=== PATIENT | male | born 1975 | race African-American/Black ===

== ENCOUNTER 2016-12-09 09:37 | Outpatient (CLI) ==
[2013-04-24 00:10] VITALS: TEMP 97.8
[2016-04-19 00:05] VITALS: BMI 28.2
[2016-12-09 12:39] LABS: BASOPHILS % (AUTO) 0.5 % (0.0-3.0); EOSINOPHILS # (AUTO) 0.2 K/ul (0.0-0.7); EOSINOPHILS % (AUTO) 4.7 % (0.0-7.0); HEMATOCRIT 46.3 % (42.0-52.0); HEMOGLOBIN 15.6 g/dl (14.0-18.0); IMMATURE GRANULOCYTE % (AUTO) 0.2 % (0.0-5.0); LYMPHOCYTES # (AUTO) 1.6 K/uL (0.60-3.4); MEAN CORPUSCULAR HEMOGLOBIN 29.3 pg (27.0-31.0); MEAN CORPUSCULAR HGB CONC 33.7 (31.8-35.4); MEAN CORPUSCULAR VOLUME 86.9 fl (80.0-94.0); MONOCYTES # (AUTO) 0.6 K/uL (0.4-2.0); MONOCYTES % (AUTO) 13.3 (0-10); NEUTROPHILS # (AUTO) 2.1 K/ul (2.0-6.9); NEUTROPHILS % (AUTO) 46.3; PLATELET COUNT 348 10^3/uL (140-440); RED BLOOD COUNT 5.33 10^6/ul (4.70-6.10); WHITE BLOOD COUNT 4.43 K/ul (4.2-10.2)
[2016-12-09 13:42] LABS: ALBUMIN 3.8 g/dL (3.4-5.0); ALBUMIN/GLOBULIN RATIO 1.09; ANION GAP 15.2; BILIRUBIN,TOTAL 0.22 mg/dL (0.00-1.20); BUN/CREATININE RATIO 6.61; CALCIUM 9.2 mg/dL (8.2-10.2); CHOL/HDL RATIO 6.4 (4.5-6.4); CREATININE 1.36 mg/dL (0.60-1.10); POTASSIUM 4.2 mmol/L (3.5-5.1); TOTAL PROTEIN 7.3 g/dL (6.4-8.2)
== END 2016-12-09 09:38 | disposition home or self-care (01) ==
LOC: LAB 09:37
PROVIDERS: ATTEND Nurse Practitioner Family
DX: Z79.899 Other long term (current) drug therapy (principal)
CPT/HCPCS: 36415; 80053; 80061; 85025

== ENCOUNTER 2016-12-14 22:16 | Emergency (ER) ==
[2016-12-14 22:25] VITALS: BP 137/87; TEMP 97.3; BMI 34.2
[2016-12-14] MEDS ORDERED: ZOFRAN 4 MG/2 ML IM STA (22:32)
[2016-12-14] MEDS ORDERED: MORPHINE 4 MG/ML SYRINGE IM STA (22:32)
[2016-12-14 22:42] LABS: BASOPHILS % (AUTO) 0.4 % (0.0-3.0); EOSINOPHILS # (AUTO) 0.1 K/ul (0.0-0.7); EOSINOPHILS % (AUTO) 1.8 % (0.0-7.0); HEMOGLOBIN 15.9 g/dl (14.0-18.0); IMMATURE GRANULOCYTE % (AUTO) 0.1 % (0.0-5.0); LYMPHOCYTES # (AUTO) 3.3 K/uL (0.60-3.4); LYMPHOCYTES % (AUTO) 42.9 (10.0-50.0); MEAN CORPUSCULAR HEMOGLOBIN 29.6 pg (27.0-31.0); MEAN CORPUSCULAR HGB CONC 35.3 (31.8-35.4); MEAN CORPUSCULAR VOLUME 83.6 fl (80.0-94.0); MONOCYTES # (AUTO) 0.6 K/uL (0.4-2.0); MONOCYTES % (AUTO) 7.7 (0-10); NEUTROPHILS # (AUTO) 3.6 K/ul (2.0-6.9); NEUTROPHILS % (AUTO) 47.1; PLATELET COUNT 353 10^3/uL (140-440); RED BLOOD COUNT 5.38 10^6/ul (4.70-6.10); WHITE BLOOD COUNT 7.62 K/ul (4.2-10.2)
[2016-12-14 23:13] LABS: ADD URINE MICROSCOPIC NO; BILIRUBIN,URINE Negative (NEGATIVE); KETONES,URINE Negative (NEGATIVE); LEUKOCYTE ESTERASE ,URINE Negative (NEGATIVE); NITRITE,URINE Negative (NEGATIVE); PH,URINE 5.5 (5-9); PROTEIN,URINE Negative (NEGATIVE); URINE, BLOOD Negative (NEGATIVE)
[2016-12-14 23:16] LABS: ALANINE AMINOTRANSFERASE 32 U/L (12-78); ALBUMIN 4.3 g/dL (3.4-5.0); ALBUMIN/GLOBULIN RATIO 1.26; ALKALINE PHOSPHATASE 60 U/L (50-136); AMYLASE 50 U/L (25-115); ANION GAP 16.6; ASPARTATE AMINO TRANSFERASE 20 U/L (15-37); BLOOD UREA NITROGEN 11 mg/dL (7-18); BUN/CREATININE RATIO 8.39; CALCIUM 9.5 mg/dL (8.2-10.2); CARBON DIOXIDE 21 mmol/L (21-32); CHLORIDE 103 mmol/L (98-107); CREATINE KINASE 241 U/L; CREATININE 1.31 mg/dL (0.60-1.10); GLUCOSE 99 mg/dL (70-100); LIPASE 41 U/L (8-78); POTASSIUM 3.6 mmol/L (3.5-5.1); SODIUM 137 mmol/L (136-145); TOTAL PROTEIN 7.7 g/dL (6.4-8.2)
[2016-12-14 23:17] LABS: CREATINE KINASE MB 1.7 ng/ml (0.0-3.6)
--- NOTE | 2016-12-14 23:17 | CT ---
EXAM: CT abdomen pelvis without intravenous contrast 12/14/2016. Sagittal and coronal reformatted images obtained HISTORY: Abdominal pain. Question hernia COMPARISON: 04/19/2016 FINDINGS: The liver and gallbladder show no acute abnormality. The adrenal glands and kidneys show no acute abnormality. No urinary obstruction. The spleen and p ancreas show no acute abnormality. There is no bowel obstruction. Normal appendix. Unremarkable urinary bladder. No free air or free fluid. No acute osseous abnormality. IMPRESSION: 1. No urinary or bowel obstruction and normal appendix. 2. No acute inflammatory process identified within the abdomen or pelvis within the limitation of a noncontrast enhanced examination. 3. No hernia identified at any site.
--- NOTE | 2016-12-14 23:53 | ED.PDOC ---
General ED Provider: Dr. MAYCOL MARIO-ER Chief Complaint: Abdominal Pain Stated Complaint: it hurts in my belly and my testicles Time Seen by Physician: 22:20 Mode of Arrival: Walk-In Information Source: Patient Exam Limitations: No limitations [facility] Nursing and Triage Documentation Reviewed and Agree: Yes GI Complaint Exam - Abdominal Pain Complaint/Exam Onset: Gradual Duration: several days Symptoms Are: Still present Timing: Intermittent Initial Severity: Mild Current Severity: Mild Location of Pain: Discrete Radiates To: Reports: Inguinal Character: Reports: Dull Aggravating: Reports: None Alleviating: Reports: None Associated Signs and Symptoms: Denies: Diaphoresis, Fever, Cough, Chest pain, Dizziness, Back pain, Constipation, Blood in stool, Dysuria, Urinary frequency, Decreased urine output, Decreased appetite, Discharge, Nausea, Vomiting, Diarrhea, Decreased activity Testicular Torsion Risk Factors: Reports: None Abdominal Findings: Present: None Genitalia Exam: Present: Testes tender. Absent: Mass, Scrotal swelling Differential Diagnoses: Other Review of Systems - Review Of Systems Constitutional: Reports: No symptoms Eyes: Reports: No symptoms Ears, Nose, Mouth, Throat: Reports: No symptoms Respiratory: Reports: No symptoms Cardiac: Reports: No symptoms GI: Reports: No symptoms : Reports: Pain Musculoskeletal: Reports: No symptoms Skin: Reports: No symptoms Neurological: Reports: No symptoms Endocrine: Reports: No symptoms Hematologic/Lymphatic: Reports: No symptoms All Other Systems: Reviewed and Negative Past Medical History - Past Medical History Previously Healthy: Yes Endocrine: Reports: None Cardiovascular: Reports: None Respiratory: Reports: None Hematological: Reports: None Gastrointestinal: Reports: None Genitourinary: Reports: None Neuro/Psych: Reports: Schizophrenia (VOICES IN HEAD NOTE SENT TO [facility] IN 2013 ) Musculoskeletal: Reports: None Cancer: Reports: None - Surgical History General Surgical History: Reports: None, Unknown - Family History Family History: Reports: Unknown - Social History Smoking Status: Current some day smoker, Light tobacco smoker Hx Substance Use: No Alcohol Screening: None - Immunizations Tetanus Shot up to Date: Yes Physical Exam - Physical Exam Appearance: Well-appearing, No pain distress, Well-nourished Pain Distress: Mild Eyes: JUNE, EOMI, Conjunctiva clear ENT: Ears normal, Nose normal, Oropharynx normal Neck: Supple Respiratory: Airway patent Cardiovascular: RRR, Pulses normal, No rub, No murmur GI/: Tender (posterior scrotum) Musculoskeletal: Normal strength, ROM intact, No edema, No calf tenderness Skin: Warm, Dry, Normal color Neurological: Sensation intact Psychiatric: Affect appropriate, Mood appropriate Re-Evaluation - Re-Evaluation Time of Re-Evaluation: 23:53 Status: Improved Vital Signs Stable: Yes Pain Level: 1 Appearance: NAD Lungs: Clear Skin: Warm and Dry Neuro: Alert and Oriented X3 CV: RRR Critical Care Note - Critical Care Note Total Time (mins): 0 Course - Course Hematology/Chemistry: 12/14/16 22:39 12/14/16 22:39 Orders, Labs, Meds: Lab Review 12/14/16 12/14/16 22:36 22:39 WBC 7.62 RBC 5.38 Hgb 15.9 Hct 45.0 MCV 83.6 MCH 29.6 MCHC 35.3 RDW Coeff of Sathya 13.3 Plt Count 353 Immature Gran % (Auto) 0.1 Neut % (Auto) 47.1 Lymph % (Auto) 42.9 [place] % (Auto) 7.7 Eos % (Auto) 1.8 Baso % (Auto) 0.4 Immature Gran # (Auto) 0.0 Neut # 3.6 Lymph # 3.3 [place] # 0.6 Eos # 0.1 Baso # 0.0 Sodium 137 Potassium 3.6 Chloride 103 Carbon Dioxide 21 Anion Gap 16.6 BUN 11 Creatinine 1.31 H Estimated GFR (MDRD) 73.00 BUN/Creatinine Ratio 8.39 Glucose 99 Calcium 9.5 Total Bilirubin 0.60 AST 20 ALT 32 Alkaline Phosphatase 60 Total Creatine Kinase 241 CK-MB (CK-2) 1.7 CK-MB (CK-2) % 0.93712 Troponin I < 0.0100 Total Protein 7.7 Albumin 4.3 Globulin 3.4 Albumin/Globulin Ratio 1.26 Amylase 50 Lipase 41 Urine Color Yellow Urine Clarity Clear Urine pH 5.5 Ur Specific [place] 1.020 Urine Protein Negative Urine Glucose (UA) Negative Urine Ketones Negative Urine Blood Negative Urine Nitrite Negative Urine Bilirubin Negative Urine Urobilinogen 0.2 Ur Leukocyte Esterase Negative Orders Category Date Time Status EKG-(ED ONLY) Stat CARDIO 12/14/16 22:32 Completed AMYLASE Stat LAB 12/14/16 22:39 Completed CBC W/ AUTO DIFF Stat LAB 12/14/16 22:39 Completed COMPREHENSIVE METABOLIC PANEL Stat LAB 12/14/16 22:39 Completed CREATINE KINASE Stat LAB 12/14/16 22:39 Completed LIPASE Stat LAB 12/14/16 22:39 Completed TROPONIN I Stat LAB 12/14/16 22:39 Completed URINALYSIS C & S IF INDICATED Stat LAB 12/14/16 22:36 Completed Morphine Sulfate [Morphine 4 mg/ml Syringe] MEDS 12/14/16 22:32 Discontinued 4 mg IM ONCE STA Ondansetron HCl/Pf [Zofran 4 mg/2 ml] MEDS 12/14/16 22:32 Discontinued 4 mg IM ONCE STA CT ABDOMEN/PELVIS WO CONTRAST Stat RADS 12/14/16 22:32 Completed Medications Discontinued Medications Generic Name Dose Route Start Last Admin Trade Name Freq PRN Reason Stop Dose Admin Morphine Sulfate 4 mg 12/14/16 22:32 12/14/16 23:00 Morphine 4 Mg/Ml Syringe IM 12/14/16 22:33 4 mg ONCE STA Administration Ondansetron HCl 4 mg 12/14/16 22:32 12/14/16 23:01 Zofran 4 Mg/2 Ml IM 12/14/16 22:33 4 mg ONCE STA Administration Vital Signs: Temp Pulse Resp BP Pulse Ox 12/14/16 22:17 97.3 F L 97 H 18 137/87 96 Departure - Departure Time of Disposition: 23:53 Disposition: HOME SELF-CARE Discharge Problem: Epididymitis Instructions: Epididymitis (ED) Condition: Good Pt referred to PMD for follow-up: Yes Additional Instructions: cipro 500mg bid x 10 days--norco 5mg q 6hrs prn pain#10--return tomorrow for u/ s scrotum--f/u with pcp Allergies/Adverse Reactions: Allergies No Known Drug Allergies Adverse Reaction (Verified 12/14/16 22:25) Home Medications: Ambulatory Orders Ranitidine HCl 150 mg PO BID 02/08/14 Fluoxetine HCl [Prozac] 20 mg PO DAILY #30 09/04/16 Lamotrigine [Lamictal] 150 mg PO DAILY #30 09/04/16 Mirtazapine [Remeron] 30 mg PO BEDTIME #30 09/04/16 Olanzapine [Zyprexa] 15 mg PO BEDTIME #90 09/04/16 Vistaril 25 mg PO QID #120 09/04/16 Disposition Discussed With: Patient, Family
== END 2016-12-14 23:57 | disposition home or self-care (01) ==
LOC: ED 22:16
DX: N45.1 Epididymitis (principal); F17.210 Nicotine dependence, cigarettes, uncomplicated
CPT/HCPCS: 36415; 80053; 81001; 82150; 82550; 82553; 83690; 84484; 85025; 93005; 93010; 96372; 99283

== ENCOUNTER 2016-12-15 14:11 | Outpatient (CLI) ==
[2013-04-24 00:10] VITALS: TEMP 97.8
[2016-12-14 22:25] VITALS: BMI 34.2
--- NOTE | 2016-12-15 15:08 | US ---
EXAM: Ultrasound scrotum and contents. HISTORY: Scrotal pain for 1 week. COMPARISON: None available. TECHNIQUE: Walters-scale and color Doppler images. FINDINGS: The right testicle measures 3.5 x 2 x 2.9 cm. There is homogeneous echogenicity with color flow. Ri ght epididymis is unremarkable. There is a small amount of right scrotal fluid. The left testicle measures 4.6 x 1.8 x 2.8 cm. There is homogeneous echogenicity with color flow. Left epididymis is unremarkable. There is a small amount of left scrotal fluid. IMPRESSION: 1. No sonographic abnormality of the testes. 2. Small bilateral hydroceles.
== END 2016-12-15 14:12 | disposition home or self-care (01) ==
LOC: RAD 14:11
PROVIDERS: ATTEND Family Medicine
DX: N50.82 Scrotal pain (principal)

== ENCOUNTER 2017-05-13 10:04 | Outpatient (CLI) ==
[2013-04-24 00:10] VITALS: TEMP 97.8
[2017-05-13 10:22] LABS: BASOPHILS % (AUTO) 0.5 % (0.0-3.0); EOSINOPHILS # (AUTO) 0.3 K/ul (0.0-0.7); EOSINOPHILS % (AUTO) 4.4 % (0.0-7.0); HEMATOCRIT 47.1 % (42.0-52.0); HEMOGLOBIN 15.9 g/dl (14.0-18.0); IMMATURE GRANULOCYTE % (AUTO) 0.3 % (0.0-5.0); LYMPHOCYTES # (AUTO) 2.1 K/uL (0.60-3.4); LYMPHOCYTES % (AUTO) 32.4 (10.0-50.0); MEAN CORPUSCULAR HEMOGLOBIN 29.6 pg (27.0-31.0); MEAN CORPUSCULAR HGB CONC 33.8 (31.8-35.4); MEAN CORPUSCULAR VOLUME 87.5 fl (80.0-94.0); MONOCYTES # (AUTO) 0.5 K/uL (0.4-2.0); MONOCYTES % (AUTO) 8.3 (0-10); NEUTROPHILS # (AUTO) 3.5 K/ul (2.0-6.9); NEUTROPHILS % (AUTO) 54.1; PLATELET COUNT 299 10^3/uL (140-440); RED BLOOD COUNT 5.38 10^6/ul (4.70-6.10); WHITE BLOOD COUNT 6.38 K/ul (4.2-10.2)
[2017-05-13 10:41] LABS: ALBUMIN 3.7 g/dL (3.4-5.0); ALBUMIN/GLOBULIN RATIO 1.19; ANION GAP 10.2; BILIRUBIN,TOTAL 0.21 mg/dL (0.00-1.20); BUN/CREATININE RATIO 14.28; CALCIUM 9.1 mg/dL (8.2-10.2); CHOL/HDL RATIO 4.2 (4.5-6.4); CREATININE 1.12 mg/dL (0.60-1.10); POTASSIUM 4.2 mmol/L (3.5-5.1); TOTAL PROTEIN 6.8 g/dL (6.4-8.2)
== END 2017-05-13 10:05 | disposition home or self-care (01) ==
LOC: LAB 10:04
PROVIDERS: ATTEND Nurse Practitioner Family
DX: E78.5 Hyperlipidemia, unspecified (principal); A60.02 Herpesviral infection of other male genital organs
CPT/HCPCS: 36415; 80053; 80061; 85025

== ENCOUNTER 2017-09-06 15:01 | Emergency (ER) ==
[2017-09-06 15:06] VITALS: BP 121/89; TEMP 100.7
[2017-09-06 16:06] LABS: ADD URINE MICROSCOPIC NO; BILIRUBIN,URINE Negative (NEGATIVE); KETONES,URINE Negative (NEGATIVE); LEUKOCYTE ESTERASE ,URINE Negative (NEGATIVE); NITRITE,URINE Negative (NEGATIVE); PH,URINE 5.5 (5-9); PROTEIN,URINE Negative (NEGATIVE); URINE, BLOOD Negative (NEGATIVE)
[2017-09-06] MEDS ORDERED: LIDOCAINE HCL 1% SDV SUBCUT STA (16:23)
[2017-09-06] MEDS ORDERED: ROCEPHIN IM STA (16:23)
--- NOTE | 2017-09-06 16:27 | ED.PDOC ---
General ED Provider: Dr. MAYCOL MARIO-ER Chief Complaint: Penile Problem Stated Complaint: it coyle when i pee Time Seen by Physician: 15:05 Mode of Arrival: Walk-In Information Source: Patient Exam Limitations: No limitations [facility] and Triage Documentation Reviewed and Agree: Yes Complaint Exam - Complaint/Exam Patient Complains of: Reports: Dysuria Onset/Duration: 24 hrs Symptoms Are: Still present Timing: Intermittent Initial Severity: Mild Current Severity: None Location of Pain: Reports: Penis Character: Reports: Burning Aggravating: Reports: None Alleviating: Reports: None Associated Signs and Symptoms: Reports: Dysuria. Denies: Diaphoresis, Back pain , Fever, Hematuria, Constipation, Blood in stool, Appetite change, Vomiting, Penile swelling, Penile discharge, Decreased urine output, Increased urine frequency, Increased thirst, Decreased activity, Lethargy, Scrotal pain, Scrotal swelling, Abdominal Pain Testicular Torsion Risk Factors: Reports: None Surgical Obstruction Risk Factors: Reports: None Abdominal Findings: Present: None Differential Diagnoses: Other Review of Systems - Review Of Systems Constitutional: Reports: No symptoms Eyes: Reports: No symptoms Ears, Nose, Mouth, Throat: Reports: No symptoms Respiratory: Reports: No symptoms Cardiac: Reports: No symptoms GI: Reports: No symptoms : Reports: Dysuria Musculoskeletal: Reports: No symptoms Skin: Reports: No symptoms Neurological: Reports: No symptoms Endocrine: Reports: No symptoms Hematologic/Lymphatic: Reports: No symptoms All Other Systems: Reviewed and Negative Past Medical History - Past Medical History Previously Healthy: Yes Endocrine: Reports: None Cardiovascular: Reports: None Respiratory: Reports: None Hematological: Reports: None Gastrointestinal: Reports: None Genitourinary: Reports: None Neuro/Psych: Reports: Schizophrenia (VOICES IN HEAD NOTE SENT TO [facility] IN 2013 ) Musculoskeletal: Reports: None Cancer: Reports: None - Surgical History General Surgical History: Reports: None, Unknown - Family History Family History: Reports: Unknown - Social History Smoking Status: Current some day smoker, Light tobacco smoker Hx Substance Use: Yes Alcohol Screening: None Physical Exam - Physical Exam Appearance: Well-appearing, No pain distress, Well-nourished Eyes: JUNE, EOMI, Conjunctiva clear ENT: Ears normal, Nose normal, Oropharynx normal Neck: Supple Respiratory: Airway patent, Breath sounds clear, Breath sounds equal, Respirations nonlabored Cardiovascular: RRR, Pulses normal, No rub, No murmur GI/: Soft, Nontender, No masses, Bowel sounds normal, No Organomegaly Musculoskeletal: Normal strength, ROM intact, No edema, No calf tenderness Skin: Warm, Dry, Normal color Neurological: Sensation intact, Motor intact, Reflexes intact, Cranial nerves intact, Alert, Oriented Psychiatric: Affect appropriate, Mood appropriate Critical Care Note - Critical Care Note Total Time (mins): 0 Course - Course Orders, Labs, Meds: Lab Review 09/06/17 15:56 Urine Color Yellow Urine Clarity Clear Urine pH 5.5 Ur Specific [place] 1.015 Urine Protein Negative Urine Glucose (UA) Negative Urine Ketones Negative Urine Blood Negative Urine Nitrite Negative Urine Bilirubin Negative Urine Urobilinogen 0.2 Ur Leukocyte Esterase Negative Orders Category Date Time Status UA [URINALYSIS C & S IF INDICATED] Stat LAB 09/06/17 15:56 Completed Ceftriaxone Sodium [Rocephin] MEDS 09/06/17 16:23 Discontinued 250 mg IM ONCE STA Lidocaine HCl/Pf [Lidocaine HCl 1% Sdv] MEDS 09/06/17 16:23 Discontinued 5 ml SUBCUT ONCE STA Medications Discontinued Medications Generic Name Dose Route Start Last Admin Trade Name Freq PRN Reason Stop Dose Admin Ceftriaxone Sodium 250 mg 09/06/17 16:23 Rocephin IM 09/06/17 16:24 ONCE STA Lidocaine HCl 5 ml 09/06/17 16:23 Lidocaine Hcl 1% Sdv SUBCUT 09/06/17 16:24 ONCE STA Vital Signs: Temp Pulse Resp BP Pulse Ox 09/06/17 15:01 100.7 F H 113 H 18 121/89 96 Departure - Departure Time of Disposition: 16:25 Disposition: HOME SELF-CARE Discharge Problem: Urethritis Instructions: Nonspecific Urethritis in Men (ED) Condition: Good Pt referred to PMD for follow-up: Yes Additional Instructions: doxycycycline 100mg q 12hrs #14--recgheck in 72hrs if not better Allergies/Adverse Reactions: Allergies No Known Drug Allergies Adverse Reaction (Verified 09/06/17 15:06) Home Medications: Ambulatory Orders Ranitidine HCl 150 mg PO BID 02/08/14 Fluoxetine HCl [Prozac] 20 mg PO DAILY #30 09/04/16 Lamotrigine [Lamictal] 150 mg PO DAILY #30 09/04/16 Mirtazapine [Remeron] 30 mg PO BEDTIME #30 09/04/16 Olanzapine [Zyprexa] 15 mg PO BEDTIME #90 09/04/16 Vistaril 25 mg PO QID #120 09/04/16 Disposition Discussed With: Patient, Family
== END 2017-09-06 16:58 | disposition home or self-care (01) ==
LOC: ED 15:01
DX: N34.2 Other urethritis (principal); F17.210 Nicotine dependence, cigarettes, uncomplicated
CPT/HCPCS: 81001; 96372; 99283

== ENCOUNTER 2018-03-22 18:31 | Outpatient (CLI) ==
[2013-04-24 00:10] VITALS: TEMP 97.8
== END 2018-03-22 18:32 | disposition home or self-care (01) ==
LOC: RHC-LAB 18:31
PROVIDERS: ATTEND Nurse Practitioner Family
DX: R36.9 Urethral discharge, unspecified (principal)
CPT/HCPCS: 36415; 80053; 81001; 86592; 86631; 87800

== ENCOUNTER 2018-09-13 09:40 | Emergency (ER) ==
[2018-09-13 09:49] VITALS: BP 106/72; TEMP 96.9; BMI 30.8
--- NOTE | 2018-09-13 10:08 | ED.PDOC ---
General ED Provider: Dr. MAYCOL BARRIOS MD Chief Complaint: Neck Pain Non-Injury Stated Complaint: my posterior neck Time Seen by Physician: 10:10 Mode of Arrival: Walk-In Information Source: Patient Primary Care Provider: BAIRON FABIAN Nursing and Triage Documentation Reviewed and Agree: Yes Does patient meet sepsis criteria?: No If yes, has appropriate treatment been initiated?: Yes System Inflammatory Response Syndrome: Not Applicable Sepsis Protocol: For patient's 13 years and over: Temp is 96.8 and below OR 101 and greater Pulse >90 BPM Resp >20/minute Acutely Altered Mental Status Are patient's symptoms suggestive of a new infection, such as: -Pneumonia -Skin, Soft Tissue -Endocarditis -UTI -Bone, Joint Infection -Implantable Device -Acute Abdominal Infection -Wound Infection -Meningitis -Blood Stream Catheter Infection -Unknown Musculoskeletal Complaint Exam - Neck Pain Complaint/Exam Mechanism of Injury: Reports: No known trauma Onset/Duration: 3 days Symptoms Are: Still present Timing: Intermittent Episodes Lasting: Minutes Initial Severity: Mild Current Severity: Mild Location: Reports: Discrete Character: Reports: Sharp Aggravating: Reports: None Alleviating: Reports: None Meningitis Risk Factors: Reports: None Cervical Spine Injury Risk Factors: Reports: None Related Surgical History: Reports: None Carotid Bruit Present: No Pain on Passive Flexion: No Positive Kernig's Sign: No Tenderness: Present: Paraspinal Radiates to: Present: Other (right poaterior occiput) Focal Weakness: Present: None Focal Sensory Loss: Reports: None Nexus Low Risk Criteria: No post-midline CS tender Differential Diagnoses: Sprain, Strain Review of Systems - Review Of Systems Constitutional: Reports: No symptoms Eyes: Reports: No symptoms Ears, Nose, Mouth, Throat: Reports: No symptoms Respiratory: Reports: No symptoms Cardiac: Reports: No symptoms : Reports: No symptoms Musculoskeletal: Reports: Other (psin in occiput) Skin: Reports: No symptoms Neurological: Reports: No symptoms Endocrine: Reports: No symptoms Hematologic/Lymphatic: Reports: No symptoms All Other Systems: Reviewed and Negative Past Medical History - Past Medical History Previously Healthy: Yes Endocrine: Reports: None Cardiovascular: Reports: None Respiratory: Reports: None Hematological: Reports: None Gastrointestinal: Reports: None Genitourinary: Reports: None Neuro/Psych: Reports: Schizophrenia (VOICES IN HEAD NOTE SENT TO [facility] IN 2013 ) Musculoskeletal: Reports: None Cancer: Reports: None - Surgical History General Surgical History: Reports: None, Unknown - Family History Family History: Reports: Unknown - Social History Smoking Status: Current some day smoker, Light tobacco smoker Hx Substance Use: Yes Alcohol Screening: None Physical Exam - Physical Exam Appearance: Well-appearing, No pain distress, Well-nourished, Obese Ill-appearing: None Pain Distress: Mild Eyes: JUNE, EOMI, Conjunctiva clear ENT: Ears normal, Nose normal, Oropharynx normal Neck: Supple Respiratory: Airway patent, Breath sounds clear, Breath sounds equal, Respirations nonlabored Cardiovascular: RRR, Pulses normal, No rub, No murmur GI/: Soft, Nontender, No masses, Bowel sounds normal, No Organomegaly Musculoskeletal: Normal strength, ROM intact, No edema, No calf tenderness Skin: Warm, Dry, Normal color Neurological: Sensation intact, Motor intact, Reflexes intact, Cranial nerves intact, Alert, Oriented Psychiatric: Affect appropriate, Mood appropriate, Anxious Critical Care Note - Critical Care Note Total Time (mins): 0 Course - Course Orders, Labs, Meds: Orders Category Date Time Status Ketorolac Tromethamine [Toradol] MEDS 09/13/18 10:11 Discontinued 60 mg IM ONCE STA Medications Discontinued Medications Generic Name Dose Route Start Last Admin Trade Name Freq PRN Reason Stop Dose Admin Ketorolac Tromethamine 60 mg 09/13/18 10:11 09/13/18 10:27 Toradol IM 09/13/18 10:12 60 mg ONCE STA Administration Vital Signs: Temp Pulse Resp BP Pulse Ox 09/13/18 09:41 96.9 F L 72 20 106/72 96 Departure - Departure Time of Disposition: 10:55 Disposition: HOME SELF-CARE Discharge Problem: Neck strain Instructions: Cervical Strain (ED) Condition: Stable Pt referred to PMD for follow-up: Yes IPMP verified?: No Allergies/Adverse Reactions: Allergies No Known Drug Allergies Adverse Reaction (Verified 09/13/18 09:50) Home Medications: Ambulatory Orders Fluoxetine HCl [Prozac] 20 mg PO DAILY #30 09/04/16 Lamotrigine [Lamictal] 150 mg PO DAILY #30 09/04/16 Mirtazapine [Remeron] 30 mg PO BEDTIME #30 09/04/16 Olanzapine [Zyprexa] 15 mg PO BEDTIME #90 09/04/16 Vistaril 25 mg PO QID #120 09/04/16 Transfer Form Completed: No Disposition Discussed With: Patient
[2018-09-13] MEDS ORDERED: TORADOL IM STA (10:11)
== END 2018-09-13 10:58 | disposition home or self-care (01) ==
LOC: ED 09:40
DX: S13.4XXA Sprain of ligaments of cervical spine, initial encounter (principal); F17.210 Nicotine dependence, cigarettes, uncomplicated; X50.1XXA Overexertion from prolonged static or awkward postures, initial encounter
CPT/HCPCS: 96372; 99282

== ENCOUNTER 2018-09-22 04:23 | Emergency (ER) ==
[2018-09-22 04:23] VITALS: BMI 30.8
[2018-09-22 04:29] VITALS: TEMP 96.6
[2018-09-22] MEDS ORDERED: DILAUDID 1 MG/ML SYRINGE IM STA (04:29)
[2018-09-22] MEDS ORDERED: VALIUM SYRINGE IM STA (04:30)
[2018-09-22] MEDS ORDERED: NORFLEX IM STA (04:30)
[2018-09-22] MEDS ORDERED: TORADOL IM STA (04:30)
[2018-09-22] MEDS ORDERED: ATIVAN IM STA (04:48)
[2018-09-22] MEDS ORDERED: ATIVAN ONE (04:50)
[2018-09-22] MEDS ORDERED: SODIUM CHLORIDE 1,000 ML IV STA ×2 (04:59→05:00)
[2018-09-22 06:16] VITALS: BP 123/85
--- NOTE | 2018-09-22 06:27 | CT ---
EXAM: CT scan brain without contrast HISTORY: Pain COMPARISON: None. FINDINGS: Contiguous axial images obtained from the skull base to the convexities without contrast u tilizing 5-mm collimation. Sagittal and coronal reconstructions were imaged and reviewed. The ventr icles and CSF spaces are within normal limits. There are no acute intracranial findings. The visual ized paranasal sinuses and mastoid air cells are clear. The calvarium is intact. IMPRESSION: No acute intracranial findings
--- NOTE | 2018-09-22 06:37 | CT ---
EXAM: CT scan cervical spine HISTORY: Pain COMPARISON: MRI lumbar spine 02/27/2015 FINDINGS: Contiguous axial images obtained through the cervical spine utilizing 2-mm collimation. Sa gittal and coronal reconstructions were imaged and reviewed.. There is loss of the normal cervical l ordosis suggesting paraspinal muscle spasm. The vertebral bodies are normal in height the and alignm ent. Degenerate disc disease is noted at C3-C4, C5-C6 and C6 - C7. At C3-C4 there is a central disc protrusion with associated congenitally short pedicles narrowing the AP dimension of the central bo l. There is mild right neural foraminal narrowing. At C5-C6 there is a central disc protrusion in c onjunction with short pedicles narrowing the AP dimension of central canal. There is mild neural for aminal narrowing secondary to uncovertebral degenerative changes. At C6-C7 there is a spondylitic bu lge which narrows the AP dimension of central canal. There is marked left neural foraminal narrowing secondary to uncovertebral degenerative changes. IMPRESSION: Loss of the normal cervical lordosis suggesting paraspinal muscle spasm. Degenerate disc disease C3-C4, C5-C6 and C6-C7. Multilevel central canal and foraminal stenosis as described.
--- NOTE | 2018-09-22 06:37 | ED.PDOC ---
General ED Provider: Dr. MAYCOL MARIO-ER Chief Complaint: Non-specific Complaint Stated Complaint: im hurting all over Time Seen by Physician: 04:30 Mode of Arrival: Ambulance Information Source: Patient Exam Limitations: No limitations Primary Care Provider: BAIRON FABIAN Nursing and Triage Documentation Reviewed and Agree: Yes Does patient meet sepsis criteria?: No System Inflammatory Response Syndrome: Not Applicable Sepsis Protocol: For patient's 13 years and over: Temp is 96.8 and below OR 101 and greater Pulse >90 BPM Resp >20/minute Acutely Altered Mental Status Are patient's symptoms suggestive of a new infection, such as: -Pneumonia -Skin, Soft Tissue -Endocarditis -UTI -Bone, Joint Infection -Implantable Device -Acute Abdominal Infection -Wound Infection -Meningitis -Blood Stream Catheter Infection -Unknown Musculoskeletal Complaint Exam - Shoulder Pain Complaint/Exam Mechanism of Injury: Reports: No known trauma Onset/Duration: this am Symptoms Are: Still present Timing: Constant Initial Severity: Mild Current Severity: Moderate Location: Reports: Discrete Character: Reports: Dull, Aching, Spasmodic, Stiffness Aggravating: Reports: None Associated Signs and Symptoms: Denies: Swelling, Redness, Bruising, Fever, Weakness, Numbness, Tingling Non-Orthopedic Risk Factors: Reports: None Related Surgical History: Reports: None Tenderness: Present: Rotator cuff muscles Limited Range of Motion: Present: Flexion, Extension, Rotator cuff muscles Differential Diagnoses: Rotator Cuff Injury, Sprain, Strain, Tendonitis Quality Indicator For Non-Traumatic Chest Pain/Syncope: EKG Performed Review of Systems - Review Of Systems Constitutional: Reports: No symptoms Eyes: Reports: No symptoms Ears, Nose, Mouth, Throat: Reports: No symptoms Respiratory: Reports: No symptoms Cardiac: Reports: No symptoms GI: Reports: No symptoms : Reports: No symptoms Musculoskeletal: Reports: Muscle pain, Muscle stiffness Skin: Reports: No symptoms Neurological: Reports: No symptoms Endocrine: Reports: No symptoms Hematologic/Lymphatic: Reports: No symptoms All Other Systems: Reviewed and Negative Past Medical History - Past Medical History Previously Healthy: Yes Endocrine: Reports: None Cardiovascular: Reports: None Respiratory: Reports: None Hematological: Reports: None Gastrointestinal: Reports: None Genitourinary: Reports: None Neuro/Psych: Reports: Schizophrenia (VOICES IN HEAD NOTE SENT TO [facility] IN 2013 ) Musculoskeletal: Reports: None Cancer: Reports: None - Surgical History General Surgical History: Reports: None, Unknown - Family History Family History: Reports: Unknown - Social History Smoking Status: Current some day smoker, Light tobacco smoker Hx Substance Use: Yes Alcohol Screening: None - Immunizations Tetanus Shot up to Date: No (unknown) Physical Exam - Physical Exam Appearance: Ill-appearing Pain Distress: Moderate Eyes: JUNE ENT: Ears normal Neck: Supple Respiratory: Airway patent, Breath sounds clear, Breath sounds equal, Respirations nonlabored Cardiovascular: RRR, Pulses normal, No rub, No murmur GI/: Soft, Nontender, No masses, Bowel sounds normal, No Organomegaly Musculoskeletal: Limited ROM, Limited strength Skin: Warm, Dry, Normal color Neurological: Sensation intact Psychiatric: Affect appropriate, Mood appropriate, Anxious Interpretation - Radiology Interpretation Radiology Interpretation By: Radiologist Radiology Results: Negative Exam Interpreted: CT Scan - EKG Interpretation Time of EKG #1: 06:37 Rate: Tachy Rhythm: Sinus Ectopy: None [place]: NL ST Segment: Normal Interpretation: sinus tachy Re-Evaluation - Re-Evaluation Time of Re-Evaluation: 06:42 Status: Improved Vital Signs Stable: Yes Pain Level: 0 Appearance: NAD Lungs: Clear Skin: Warm and Dry Neuro: Alert and Oriented X3 CV: RRR Additional Comments: feeling much better---no further pain or spasm Critical Care Note - Critical Care Note Total Time (mins): 0 Course - Course Hematology/Chemistry: 09/22/18 04:35 09/22/18 04:35 Orders, Labs, Meds: Lab Review 09/22/18 09/22/18 09/22/18 04:35 04:35 06:10 WBC 11.73 H RBC 5.25 Hgb 16.0 Hct 45.6 MCV 86.9 MCH 30.5 MCHC 35.1 RDW Coeff of Sathya 13.5 Plt Count 349 Immature Gran % (Auto) 0.3 Neut % (Auto) 56.9 Lymph % (Auto) 27.9 [place] % (Auto) 12.5 H Eos % (Auto) 2.0 Baso % (Auto) 0.4 Immature Gran # (Auto) 0.0 Neut # (Auto) 6.7 Lymph # (Auto) 3.3 [place] # (Auto) 1.5 Eos # (Auto) 0.2 Baso # (Auto) 0.1 Sodium 136.2 L Potassium 3.97 Chloride 104.3 Carbon Dioxide 16.8 L Anion Gap 19.07 BUN 19.2 Creatinine 1.45 H Estimated GFR (MDRD) 64.00 BUN/Creatinine Ratio 13.24 Glucose 108.1 H Calcium 10.41 H Total Bilirubin 1.37 H AST 55.0 ALT 58.1 H Alkaline Phosphatase 57.9 Total Creatine Kinase 1492.2 H CK-MB (CK-2) 14.300 H* CK-MB (CK-2) % 0.9500 Troponin I < 0.012 Total Protein 8.59 H Albumin 5.07 H Globulin 3.52 Albumin/Globulin Ratio 1.44 Urine Color Yellow Urine Clarity Clear Urine pH 5.0 Ur Specific [place] >=1.030 Urine Protein 1+ Urine Glucose (UA) Negative Urine Ketones 2+ Urine Blood Negative Urine Nitrite Negative Urine Bilirubin 1+ Urine Urobilinogen 0.2 Ur Leukocyte Esterase Negative Urine Microscopic WBC 0-2 Ur Squamous Epith Cells Not present Amorphous Sediment Trace Hyaline Casts 2-5 Urine Opiates Screen Ur Oxycodone Screen Urine Methadone Screen Ur Propoxyphene Screen Ur Barbiturates Screen U Tricyclic Antidepress Ur Phencyclidine Scrn Ur Amphetamine Screen U Methamphetamines Scrn U Benzodiazepines Scrn Urine Cocaine Screen U Cannabinoids Screen 09/22/18 06:10 WBC RBC Hgb Hct MCV MCH MCHC RDW Coeff of Sathya Plt Count Immature Gran % (Auto) Neut % (Auto) Lymph % (Auto) [place] % (Auto) Eos % (Auto) Baso % (Auto) Immature Gran # (Auto) Neut # (Auto) Lymph # (Auto) [place] # (Auto) Eos # (Auto) Baso # (Auto) Sodium Potassium Chloride Carbon Dioxide Anion Gap BUN Creatinine Estimated GFR (MDRD) BUN/Creatinine Ratio Glucose Calcium Total Bilirubin AST ALT Alkaline Phosphatase Total Creatine Kinase CK-MB (CK-2) CK-MB (CK-2) % Troponin I Total Protein Albumin Globulin Albumin/Globulin Ratio Urine Color Urine Clarity Urine pH Ur Specific [place] Urine Protein Urine Glucose (UA) Urine Ketones Urine Blood Urine Nitrite Urine Bilirubin Urine Urobilinogen Ur Leukocyte Esterase Urine Microscopic WBC Ur Squamous Epith Cells Amorphous Sediment Hyaline Casts Urine Opiates Screen Negative Ur Oxycodone Screen Negative Urine Methadone Screen Negative Ur Propoxyphene Screen Negative Ur Barbiturates Screen Negative U Tricyclic Antidepress Negative Ur Phencyclidine Scrn Negative Ur Amphetamine Screen Positive U Methamphetamines Scrn Positive U Benzodiazepines Scrn Negative Urine Cocaine Screen Negative U Cannabinoids Screen Positive Orders Category Date Time Status EKG-(ED ONLY) Stat CARDIO 09/22/18 04:28 Completed ED IV/MEDIPORT/POWERPORT .ONCE EMERGENCY 09/22/18 04:59 Active CBC W/ AUTO DIFF Stat LAB 09/22/18 04:35 Completed COMPREHENSIVE METABOLIC PANEL Stat LAB 09/22/18 04:35 Completed CREATINE KINASE Stat LAB 09/22/18 04:35 Completed TROPONIN I Stat LAB 09/22/18 04:35 Completed URINALYSIS C & S IF INDICATED Stat LAB 09/22/18 06:10 Completed URINE DRUG SCREEN (RAPID FOR ED) [DRUG SCREEN, URINE, LAB 09/22/18 06:10 Completed RAPID] Stat 0.9 % Sodium Chloride [Saline Flush] MEDS 09/22/18 04:59 Ordered 1 syr IVF PRN PRN Hydromorphone HCl [Dilaudid 1 mg/ml Syringe] MEDS 09/22/18 04:29 Discontinued 2 mg IM ONCE STA Ketorolac Tromethamine [Toradol] MEDS 09/22/18 04:30 Discontinued 60 mg IM ONCE STA Lorazepam Inj [Ativan] MEDS 09/22/18 04:48 Discontinued 1 mg IM ONCE STA Lorazepam Inj [Ativan] MEDS 09/22/18 04:50 Discontinued 2 mg .ROUTE .STK-MED ONE Orphenadrine Citrate [Norflex] MEDS 09/22/18 04:30 Discontinued 60 mg IM ONCE STA Sodium Chloride 0.9% [Sodium Chloride] 1,000 ml MEDS 09/22/18 04:59 Discontinued IV BOLUS Sodium Chloride 0.9% [Sodium Chloride] 1,000 ml MEDS 09/22/18 05:[address] CERVICAL SPINE W/O CONTRAST Stat RADS 09/22/18 04:[address] CHEST W/O CONTRAST Stat RADS 09/22/18 04:[address] HEAD W/O CONTRAST Stat RADS 09/22/18 05:[address] SHOULDER RIGHT W/O CONTRAST Stat RADS 09/22/18 04:31 Ordered Medications Generic Name Dose Route Start Last Admin Trade Name Freq PRN Reason Stop Dose Admin Sodium Chloride 1 syr 09/22/18 04:59 09/22/18 05:10 Saline Flush IVF 1 syr PRN PRN Administration To flush IV Discontinued Medications Generic Name Dose Route Start Last Admin Trade Name Dora PRN Reason Stop Dose Admin Hydromorphone HCl 2 mg 09/22/18 04:29 09/22/18 04:46 Dilaudid 1 Mg/Ml Syringe IM 09/22/18 04:30 2 mg ONCE STA Administration Sodium Chloride 1,000 mls @ 1,000 mls/hr 09/22/18 05:00 09/22/18 05:10 Sodium Chloride IV 09/22/18 05:59 1,000 mls/hr BOLUS STA Administration Sodium Chloride 1,000 mls @ 1,000 mls/hr 09/22/18 04:59 09/22/18 06:08 Sodium Chloride IV 09/22/18 05:58 1,000 mls/hr BOLUS STA Administration Ketorolac Tromethamine 60 mg 09/22/18 04:30 09/22/18 04:56 Toradol IM 09/22/18 04:31 60 mg ONCE STA Administration Lorazepam 1 mg 09/22/18 04:48 09/22/18 05:00 Ativan IM 09/22/18 04:49 1 mg ONCE STA Administration Orphenadrine Citrate 60 mg 09/22/18 04:30 09/22/18 04:56 Norflex IM 09/22/18 04:31 60 mg ONCE STA Administration Vital Signs: Temp Pulse Resp BP Pulse Ox 09/22/18 06:05 95 H 20 123/85 98 09/22/18 04:24 96.6 F L 122 H 24 140/119 H 97 Departure - Departure Time of Disposition: 06:42 Disposition: HOME SELF-CARE Discharge Problem: Methamphetamine use, Volume depletion Instructions: Methamphetamine Abuse (ED) Condition: Good Pt referred to PMD for follow-up: Yes IPMP verified?: No Additional Instructions: encourage fluids---have labs rechecked at pcp Allergies/Adverse Reactions: Allergies No Known Drug Allergies Adverse Reaction (Verified 09/13/18 09:50) Home Medications: Ambulatory Orders Fluoxetine HCl [Prozac] 20 mg PO DAILY #30 09/04/16 Lamotrigine [Lamictal] 150 mg PO DAILY #30 09/04/16 Mirtazapine [Remeron] 30 mg PO BEDTIME #30 09/04/16 Olanzapine [Zyprexa] 15 mg PO BEDTIME #90 09/04/16 Vistaril 25 mg PO QID #120 09/04/16 Disposition Discussed With: Patient
--- NOTE | 2018-09-22 06:41 | CT ---
EXAM: CT scan thorax without contrast HISTORY: Chest pain COMPARISON: CTA thorax 04/19/2016 FINDINGS: Contiguous axial images were obtained through the thorax without contrast utilizing 5-mm c ollimation. Sagittal and coronal reconstructions were imaged reviewed. The thoracic inlet is unremar kable. There is no evidence of mediastinal lymphadenopathy. The heart is normal in size without per icardial effusion. There is minimal dependent atelectasis in both posterior gutter regions.. There is mild scarring anteriorly at the left lung base.. The visualized upper abdominal structures are un remarkable. Bone windows reveals no evidence of lytic or blastic lesions. IMPRESSION: Minimal dependent atelectasis in both posterior gutter regions with likely fibrotic scarring left ck g base
--- NOTE | 2018-09-22 06:50 | CT ---
EXAM: CT scan right shoulder HISTORY: Pain COMPARISON: None. FINDINGS: Contiguous axial images obtained through the shoulder without contrast utilizing 2-mm miguel imation. Sagittal and coronal reconstructions were imaged and reviewed.. There is a 5.3 mm bony bod y adjacent to the lateral aspect of the acromion of indeterminate age. The AC joint is intact. Dege nerative changes noted about the glenohumeral joint.. IMPRESSION: Mild degenerative changes noted about the glenohumeral joint without acute fracture. 5.3 mm bony body lateral to the acromion of indeterminate age. Correlate with clinical exam
== END 2018-09-22 07:00 | disposition home or self-care (01) ==
LOC: ED 04:23
DX: F15.90 Other stimulant use, unspecified, uncomplicated (principal); E86.9 Volume depletion, unspecified; R52 Pain, unspecified; F17.210 Nicotine dependence, cigarettes, uncomplicated
CPT/HCPCS: 36415; 80053; 80306; 81001; 82550; 82553; 84484; 85025; 93005; 93010; 96360; 96361; 96372; 99284

== ENCOUNTER 2018-09-25 07:58 | Emergency (ER) ==
[2018-09-25 08:03] VITALS: BP 137/89; TEMP 98.3; BMI 33.7
--- NOTE | 2018-09-25 08:30 | ED.PDOC ---
General ED Provider: Dr. MAYCOL FRANKLIN Chief Complaint: Shoulder Pain/Injury Stated Complaint: Severe pain and muscular tightness to rt side of neck, uper back and across rt shoulder Time Seen by Physician: 08:15 Mode of Arrival: Walk-In Information Source: Patient Exam Limitations: No limitations Primary Care Provider: BAIRON FABIAN Seen Within Last 72 Hours for Same Complaint By: ED Nursing and Triage Documentation Reviewed and Agree: Yes Does patient meet sepsis criteria?: No System Inflammatory Response Syndrome: Not Applicable Sepsis Protocol: For patient's 13 years and over: Temp is 96.8 and below OR 101 and greater Pulse >90 BPM Resp >20/minute Acutely Altered Mental Status Are patient's symptoms suggestive of a new infection, such as: -Pneumonia -Skin, Soft Tissue -Endocarditis -UTI -Bone, Joint Infection -Implantable Device -Acute Abdominal Infection -Wound Infection -Meningitis -Blood Stream Catheter Infection -Unknown Musculoskeletal Complaint Exam - Shoulder Pain Complaint/Exam Mechanism of Injury: Reports: No known trauma Onset/Duration: 7 days Symptoms Are: Still present Timing: Intermittent Initial Severity: Moderate Current Severity: Moderate Location: Reports: Diffuse (Located from Rt Cervical spine region-Shoulder and upper back) Character: Reports: Aching, Spasmodic, Stiffness Alleviating: Reports: None Aggravating: Reports: Movement, Lifting Associated Signs and Symptoms: Denies: Swelling, Redness, Bruising, Fever, Weakness, Numbness, Tingling Related History: Reports: Similar episode Non-Orthopedic Risk Factors: Reports: None DVT Risk Factors: Reports: None Septic Arthritis Risk Factors: Reports: None Related Surgical History: Reports: None Differential Diagnoses: Rotator Cuff Injury, Strain Review of Systems - Review Of Systems Constitutional: Reports: No symptoms Eyes: Reports: No symptoms Ears, Nose, Mouth, Throat: Reports: No symptoms Respiratory: Reports: No symptoms Cardiac: Reports: No symptoms GI: Reports: No symptoms : Reports: No symptoms Musculoskeletal: Reports: No symptoms, Back pain, Muscle stiffness, Neck pain Skin: Reports: No symptoms Neurological: Reports: No symptoms Endocrine: Reports: No symptoms Hematologic/Lymphatic: Reports: No symptoms All Other Systems: Reviewed and Negative Past Medical History - Past Medical History Previously Healthy: Yes Endocrine: Reports: None Cardiovascular: Reports: None Respiratory: Reports: None Hematological: Reports: None Gastrointestinal: Reports: None Genitourinary: Reports: None Neuro/Psych: Reports: Schizophrenia (VOICES IN HEAD NOTE SENT TO [facility] IN 2013 ) Musculoskeletal: Reports: None Cancer: Reports: None - Surgical History General Surgical History: Reports: None, Unknown - Family History Family History: Reports: Unknown - Social History Smoking Status: Current some day smoker, Light tobacco smoker Hx Substance Use: Yes (" in the past") Alcohol Screening: Occasionally Physical Exam - Physical Exam Appearance: Well-appearing, No pain distress, Well-nourished Eyes: JUNE, EOMI, Conjunctiva clear ENT: Ears normal, Nose normal, Oropharynx normal Respiratory: Airway patent, Breath sounds clear, Breath sounds equal, Respirations nonlabored Cardiovascular: RRR, Pulses normal, No rub, No murmur GI/: Soft, Nontender, No masses, Bowel sounds normal, No Organomegaly Musculoskeletal: Normal strength, ROM intact, No edema, No calf tenderness Skin: Warm, Dry, Normal color Neurological: Sensation intact, Motor intact, Reflexes intact, Cranial nerves intact, Alert, Oriented Psychiatric: Affect appropriate, Mood appropriate Interpretation - Radiology Interpretation Radiology Interpretation By: ED Physician (Scans from previous ER visit reviewed /no indication to repeat) Re-Evaluation - Re-Evaluation Status: Improved Vital Signs Stable: Yes Pain Level: 5/10 Appearance: NAD Lungs: Clear Skin: Warm and Dry Neuro: Alert and Oriented X3 CV: RRR Critical Care Note - Critical Care Note Total Time (mins): 0 Course - Course Orders, Labs, Meds: Orders Category Date Time Status Diazepam [Valium] MEDS 09/25/18 08:32 Discontinued 5 mg PO ONCE STA Ketorolac Tromethamine [Toradol] MEDS 09/25/18 08:32 Discontinued 30 mg IM ONCE STA Medications Discontinued Medications Generic Name Dose Route Start Last Admin Trade Name Jcarlosq PRN Reason Stop Dose Admin Diazepam 5 mg 09/25/18 08:32 09/25/18 08:47 Valium PO 09/25/18 08:33 5 mg ONCE STA Administration Ketorolac Tromethamine 30 mg 09/25/18 08:32 09/25/18 08:46 Toradol IM 09/25/18 08:33 30 mg ONCE STA Administration Vital Signs: Temp Pulse Resp BP Pulse Ox 09/25/18 07:59 98.3 F 73 16 137/89 98 Departure - Departure Time of Disposition: 09:15 Disposition: HOME SELF-CARE Discharge Problem: Cervical paraspinal muscle spasm, Shoulder pain, right, Strain of thoracic paraspinal muscles excluding T1 and T2 levels Instructions: Cervical Strain (ED), Arthralgia (ED), Thoracic Back Strain (ED) , Cervical Strain (DC) Condition: Good Pt referred to PMD for follow-up: Yes (1week) IPMP verified?: No Additional Instructions: Apply warm moist heat to area of muscular soreness for 15 min Ice for acute pain only Exercises as directed Explained that prev imaging studies reviewed and discussed results Allergies/Adverse Reactions: Allergies No Known Drug Allergies Adverse Reaction (Verified 09/25/18 08:03) Home Medications: Ambulatory Orders Fluoxetine HCl [Prozac] 20 mg PO DAILY #30 09/04/16 Lamotrigine [Lamictal] 150 mg PO DAILY #30 09/04/16 Mirtazapine [Remeron] 30 mg PO BEDTIME #30 09/04/16 Olanzapine [Zyprexa] 15 mg PO BEDTIME #90 09/04/16 Vistaril 25 mg PO QID #120 09/04/16 Diazepam [Valium] 5 mg PO Q12H PRN #10 tablet 09/25/18 Ketorolac Tromethamine [Toradol] 10 mg PO Q6H PRN #20 tablet 09/25/18 Disposition Discussed With: Patient
[2018-09-25] MEDS ORDERED: TORADOL IM STA (08:32)
[2018-09-25] MEDS ORDERED: VALIUM PO STA (08:32)
== END 2018-09-25 10:02 | disposition home or self-care (01) ==
LOC: ED 07:58
DX: S29.012A Strain of muscle and tendon of back wall of thorax, initial encounter (principal); M62.830 Muscle spasm of back; M25.511 Pain in right shoulder; X50.1XXA Overexertion from prolonged static or awkward postures, initial encounter; F17.210 Nicotine dependence, cigarettes, uncomplicated
CPT/HCPCS: 96372; 99283